=== PATIENT | male | born 1955 | race Caucasian/White ===

== ENCOUNTER 2021-05-21 12:57 | Emergency (ER) | payer OTHER ==
[~2021-05-21] VITALS: Ht 182.9 cm; Wt 83.9 kg
[2021-05-21 14:01] LABS: HEMOGLOBIN 13.8 gm/dl (14.0-17.5); RED BLOOD COUNT 4.22 M/UL (4.20-5.50)
[2021-05-21 14:20] LABS: BUN/CREATININE RATIO 20 (0-10)
[2021-05-21] MEDS ORDERED: DECADRON6 MG PO (18:12)
[2021-05-21] MEDS ORDERED: AZITHROMYCIN250 MG PO (18:12)
== END 2021-05-21 18:40 | disposition home or self-care (01) ==
LOC: ER1 12:57
PROVIDERS: Family Medicine
DX: Z23 Encounter for immunization (principal); U07.1 COVID-19; J12.82 Pneumonia due to coronavirus disease 2019; Z87.891 Personal history of nicotine dependence; D69.6 Thrombocytopenia, unspecified; D72.829 Elevated white blood cell count, unspecified
CPT/HCPCS: 36600; 71045; 80053; 82803; 83605; 83880; 85025; 93005; 96374; 99285; J1100; J7030; M0243